=== PATIENT | female | born 1995 | race Hispanic/Latino ===

== ENCOUNTER 2017-04-19 09:15 | Emergency (ER) | payer BC ==
[2017-04-19 09:16] VITALS: BMI 22.8
[2017-04-19 09:26] VITALS: BP 111/74; PULSE 74; RESP 16; TEMP 98.2; O2SAT 97
--- NOTE | 2017-04-19 09:49 | ED PDOC ---
Arrival/HPI - General Chief Complaint: Female Genitourinary Time Seen by Provider: 04/19/17 09:33 Historian: Patient - History of Present Illness Time/Duration: Other (Last night) Symptom Course: Unchanged Severity Level: Mild Associated Symptoms (Text): 04/19/17 09:47 Patient placed a tampon last night, and is unable to find it this morning. No abdominal pain nausea vomiting or diarrhea. No vaginal discharge or pain. Past Medical History - Infectious Disease Hx of Infectious Diseases: None - Tetanus Immunization Tetanus Immunization: Unknown - Psychiatric Hx Psychophysiologic Disorder: No Hx Depression: No Hx Emotional Abuse: No Hx Physical Abuse: No Hx Substance Use: No - Suicidal Assessment Feels Threatened In Home Enviroment: No Family/Social History - Physician Review Nursing Documentation Reviewed: Yes Family/Social History: Unknown Family HX Smoking Status: Never Smoked Hx Alcohol Use: Yes Frequency of alcohol use: Socially Hx Substance Use: No Hx Substance Use Treatment: No Allergies/Home Meds Allergies/Adverse Reactions: Allergies No Known Allergies Allergy (Verified 04/19/17 09:20) Home Medications: Home Meds Medication Instructions Recorded Confirmed Benzonatate 1 cap PO TID 04/19/17 04/19/17 Review of Systems - Physician Review All systems were reviewed & negative as marked: Yes Physical Exam Vital Signs Temp Pulse Resp BP Pulse Ox 04/19/17 09:21 98.2 F 74 16 111/74 97 Temperature: Afebrile Blood Pressure: Normal Pulse: Regular Respiratory Rate: Normal Appearance: Positive for: Well-Appearing, Non-Toxic, Comfortable Pain Distress: None Mental Status: Positive for: Alert and Oriented X 3 - Systems Exam Abdomen: Present: Normal Bowel Sounds. No: Tenderness, Distention, Peritoneal Signs Genitourinary/Pelvic Exam: Present: Normal External Genitalia, Vaginal Bleeding , Cervical os Closed, Other (There is no foreign body present.). No: Vaginal Discharge, Vaginal Lesions, Adenexal Tenderness, Adenexal Mass, Cervical Motion Tendernes, Odor Disposition/Present on Arrival - Present on Arrival Any Indicators Present on Arrival: No History of DVT/PE: No History of Uncontrolled Diabetes: No Urinary Catheter: No History of Decub. Ulcer: No History Surgical Site Infection Following: None - Disposition Have Diagnosis and Disposition been Completed?: Yes Diagnosis: Vaginal foreign body Disposition: HOME/ ROUTINE Disposition Time: 09:48 Patient Plan: Discharge Condition: GOOD Discharge Instructions (ExitCare): Vaginal Foreign Body (ED)
== END 2017-04-19 10:05 | disposition home or self-care (01) ==
LOC: ED 09:15
DX: T19.2XXA Foreign body in vulva and vagina, initial encounter (principal); X58.XXXA Exposure to other specified factors, initial encounter; Y93.89 Activity, other specified; Y92.89 Other specified places as the place of occurrence of the external cause

== ENCOUNTER 2017-07-21 09:37 | Emergency (ER) | payer BC ==
[2017-07-21 09:40] VITALS: BMI 23.5
[2017-07-21 09:43] VITALS: RESP 16; O2SAT 100
--- NOTE | 2017-07-21 10:36 | ED PDOC ---
Arrival/HPI - General Chief Complaint: Upper Extremity Problem/Injury Time Seen by Provider: 07/21/17 09:52 Historian: Patient - History of Present Illness Narrative History of Present Illness (Text): 07/21/17 10:29 22yo female present with complaint of right distal upper arm and elbow pain s/p injury yesterday. States she fell while snow boarding and break her fall by placing her right hand on the ground. States she took Aleve last night. she denies hitting her head anywhere, denies any other complaint. Past Medical History - Provider Review Nursing Documentation Reviewed: Yes - Infectious Disease Hx of Infectious Diseases: None - Tetanus Immunization Tetanus Immunization: Unknown - Psychiatric Hx Psychophysiologic Disorder: No Hx Depression: No Hx Emotional Abuse: No Hx Physical Abuse: No Hx Substance Use: No - Suicidal Assessment Feels Threatened In Home Enviroment: No Family/Social History - Physician Review Nursing Documentation Reviewed: Yes Family/Social History: Unknown Family HX Smoking Status: Never Smoked Hx Alcohol Use: Yes Hx Substance Use: No Hx Substance Use Treatment: No Allergies/Home Meds Allergies/Adverse Reactions: Allergies No Known Allergies Allergy (Verified 04/19/17 09:20) Review of Systems - Physician Review All systems were reviewed & negative as marked: Yes - Review of Systems Constitutional: Normal Eyes: Normal ENT: Normal Respiratory: Normal Cardiovascular: Normal Gastrointestinal: Normal Genitourinary Female: Normal Musculoskeletal: Arthralgias (Right elbow/upper arm pain) Skin: Normal Neurological: Normal Endocrine: Normal Hemo/Lymphatic: Normal Psychiatric: Normal Physical Exam Vital Signs Reviewed: Yes Vital Signs Temp Pulse Resp BP Pulse Ox 07/21/17 11:47 97.6 F 70 122/71 07/21/17 09:37 98 F 86 16 98/62 L 100 Temperature: Afebrile Blood Pressure: Normal Pulse: Regular Respiratory Rate: Normal Appearance: Positive for: Well-Appearing, Non-Toxic, Comfortable Pain Distress: None Mental Status: Positive for: Alert and Oriented X 3 - Systems Exam Head: Present: Atraumatic, Normocephalic Pupils: Present: PERRL Extroacular Muscles: Present: EOMI Conjunctiva: Present: Normal Mouth: Present: Moist Mucous Membranes Neck: Present: Normal Range of Motion Respiratory/Chest: Present: Clear to Auscultation, Good Air Exchange. No: Respiratory Distress, Accessory Muscle Use Cardiovascular: Present: Regular Rate and Rhythm, Normal S1, S2. No: Murmurs Abdomen: Present: Normal Bowel Sounds. No: Tenderness, Distention, Peritoneal Signs Back: Present: Normal Inspection Upper Extremity: Present: NORMAL PULSES, Tenderness (Right elbow/distal upper arm), Swelling, Neurovascularly Intact, Other. No: Cyanosis, Edema, Normal ROM (Limited on flexion of arm), Deformity Lower Extremity: Present: Normal Inspection. No: Edema Neurological: Present: GCS=15, CN II-XII Intact, Speech Normal Skin: Present: Warm, Dry, Normal Color. No: Rashes Psychiatric: Present: Alert, Oriented x 3, Normal Insight, Normal Concentration Medical Decision Making ED Course and Treatment: 07/21/17 18:15 Right elbow xray - IMPRESSION: Joint effusion. There is a questionable fracture at the junction of the radial head and neck seen on the oblique view. Clinical correlation is suggested Result was DW the pt and a copy of the xray report given. Arm was placed on a sling. PT was referred to ortho. TRT ED for any new or worsening symptoms. - RAD Interpretation Radiology Orders: 07/21/17 10:15 ELBOW RIGHT 3 VIEWS ROUTINE [RAD] Stat 07/21/17 10:16 HUMERUS RIGHT [RAD] Stat - Medication Orders Current Medication Orders: Discontinued Medications Ibuprofen (Motrin Tab) 600 mg PO STAT STA Stop: 07/21/17 10:17 Last Admin: 07/21/17 10:19 Dose: 600 mg BANNER Pain/Vitals Document 07/21/17 10:19 AB (Rec: 07/21/17 10:20 AB [id number]) Pain Reassessment Is This A Pain ReAssessment? Yes Sleep Is patient sleeping during reassessment? No Presence of Pain Presence of Pain Yes Pain Scale Used Pain Scale Used Numeric Location Left, Right or Bilateral Right Pain Location Body Site Arm Description Constant Intensity 4 Scale Used Numeric Pain Behavior Guarding Aggravating Factors ADL's Alleviating Factors Medication Re-Assess: LOKESH Pain/Vitals Document 07/21/17 11:09 AB (Rec: 07/21/17 11:10 AB [id number]) Pain Reassessment Is This A Pain ReAssessment? Yes Sleep Is patient sleeping during reassessment? No Presence of Pain Presence of Pain No Disposition/Present on Arrival - Present on Arrival Any Indicators Present on Arrival: No History of DVT/PE: No History of Uncontrolled Diabetes: No Urinary Catheter: No History of Decub. Ulcer: No History Surgical Site Infection Following: None - Disposition Have Diagnosis and Disposition been Completed?: Yes Diagnosis: Elbow fracture Disposition: HOME/ ROUTINE Disposition Time: 11:30 Patient Plan: Discharge Condition: STABLE Discharge Instructions (ExitCare): Elbow Fracture in Adults (ED) Additional Instructions: Follow up with orthopedist Return to ED for any new or worsening symptoms Prescriptions: Ibuprofen [Motrin Tab] 600 mg PO Q6 #20 tab traMADol [Ultram] 50 mg PO Q6 #10 tab Referrals: Hawa Denton MD [Primary Care Provider] - Follow up with primary Dennis Stein MD [Staff Provider] - Follow up with primary Forms: [employer] ([place]), WORK NOTE
--- NOTE | 2017-07-21 11:19 | RAD ---
PROCEDURE: Radiographs of the right humerus. HISTORY: arm pain s/p trauma COMPARISON: None. FINDINGS: BONES: Normal. No fracture or focal lesion. SOFT TISSUES: Normal. OTHER FINDINGS: None. IMPRESSION: Normal radiographs of right humerus.
--- NOTE | 2017-07-21 11:22 | RAD ---
PROCEDURE: Radiographs of the right elbow. HISTORY: arm pain s/p trauma COMPARISON: No prior. FINDINGS: BONES: There is a questionable fracture at the junction of the radial head and neck seen on the obliques view. JOINTS: No evidence of arthritis SOFT TISSUES: Normal. JOINT EFFUSION: There is elevation of the anterior and posterior fat pads consistent with a joint effusion OTHER FINDINGS: None. IMPRESSION: Joint effusion. There is a questionable fracture at the junction of the radial head and neck seen on the oblique view. Clinical correlation is suggested
[2017-07-21 11:48] VITALS: BP 122/71; PULSE 70; TEMP 97.6
== END 2017-07-21 11:47 | disposition home or self-care (01) ==
LOC: ED 09:37
DX: S42.401A Unspecified fracture of lower end of right humerus, initial encounter for closed fracture (principal); W19.XXXA Unspecified fall, initial encounter; Y93.23 Activity, snow (alpine) (downhill) skiing, snowboarding, sledding, tobogganing and snow tubing; Y92.89 Other specified places as the place of occurrence of the external cause